=== PATIENT | male | born 1995 | race Caucasian/White ===

== ENCOUNTER 2018-09-16 22:06 | Emergency (ER) | payer BC | END 2018-09-17 01:41 | disposition left against medical advice (07) | LOC: ERS 22:06 | DX: Z53.21 Procedure and treatment not carried out due to patient leaving prior to being seen by health care provider (principal) ==

== ENCOUNTER 2020-03-22 16:35 | Emergency (ER) | payer BC | END 2020-03-22 17:23 | disposition left against medical advice (07) | LOC: ERS 16:35 | DX: Z53.21 Procedure and treatment not carried out due to patient leaving prior to being seen by health care provider (principal) ==